=== PATIENT | female | born 1940 | race Caucasian/White ===

== ENCOUNTER 2018-11-14 13:10 | Observation (INO) | payer MEDICARE, MEDICAID ==
[2018-11-14 13:18] VITALS: BMI 37.1
--- NOTE | 2018-11-14 13:22 | C.PDOC ---
History Of Present Illness 78 y/o female presents to ED complaining of feeling dizzy, having unsteady gait and right hand numbness that started 8:30 this morning. Patient denies any headache, nausea, vomiting, or other complaints. Time Seen by Provider: 11/14/18 13:18 Chief Complaint (Nursing): Weakness/Neurological Deficit History Per: Patient History/Exam Limitations: no limitations Onset/Duration Of Symptoms: Hrs Current Symptoms Are (Timing): Still Present Past Medical History Reviewed: Historical Data, Nursing Documentation, Vital Signs Family History: States: No Known Family Hx Review Of Systems Except As Marked, All Systems Reviewed And Found Negative. Constitutional: Negative for: Fever, Chills Gastrointestinal: Negative for: Nausea, Vomiting Musculoskeletal: Positive for: Other (right hand numbness) Neurological: Positive for: Dizziness. Negative for: Headache Physical Exam - Physical Exam Appears: Non-toxic, No Acute Distress Skin: Warm, Dry Head: Normacephalic Eye(s): bilateral: Normal Inspection Oral Mucosa: Moist Neck: Supple Cardiovascular: Rhythm Regular, No Murmur Respiratory: Normal Breath Sounds, No Rales, No Rhonchi, No Wheezing Extremity: Bilateral: Atraumatic, Normal ROM Neurological/Psych: Oriented x3, Normal Speech, Other (mild ataxia) ED Course And Treatment - Laboratory Results Result Diagrams: 11/14/18 13:26 11/14/18 13:26 ECG: Interpreted By Me, Viewed By Pr ECG Rhythm: Sinus Rhythm, R BBB ECG Interpretation: Normal Interpretation Of ECG: No prior for comparison. Rate From EC O2 Sat by Pulse Oximetry: 98 (RA) Pulse Ox Interpretation: Normal - Other Rad CXR X-Ray: Read By Radiologist Interpretation: FINDINGS: LUNGS: The lungs are well inflated and clear. PLEURA: No pleural effusions or pneumothorax. CARDIOVASCULAR: The heart is n ormal in size. No aortic atherosclerotic calcifications present. OSSEOUS STRUCTURES: Within normal limits for the patient's age. VISUALIZED UPPER ABDOMEN: Normal. OTHER FINDINGS: None. IMPRESSION: No active pulmonary disease. - CT Scan/US Head CT Other Rad Studies (CT/US): Read By Radiologist, Radiology Report Reviewed CT/US Interpretation: FINDINGS: HEMORRHAGE: No intracranial hemorrhage. BRAIN: No mass effect or edema. Minimal atrophy. Minimal periventricular white matter lucency consistent with chronic microvascular ischemic change. No evidence of acute infarct. VENTRICLES: Unremarkable. No hydrocephalus. CALVARIUM: Unremarkable. PARANASAL SINUSES: Unremarkable as visualized. No significant inflammatory changes. MASTOID AIR CELLS: Unremarkable as visualized. No inflammatory changes. OTHER FINDINGS: None. IMPRESSION: No evidence of acute infarct. Mild age related atrophy and chronic white matter ischemic change. Findings were discussed by telephone with Dr. Parra at 1:39 p.m. on 11/14/2018. NIHSS Stroke Scale 2 - Date/Time Evaluation Performed Time Performed: 21:50 - How Severe is the Stroke Level of Consciousness: 0=Alert LOC to Questions: 0=Both comments correct LOC to commands: 0=Obeys both correctly Best Gaze: 0=Normal Visual: 0=No visual loss Facial: 0=Normal Motor Arm - Left: 0=No drift Motor Arm - Right: 0=No drift Motor Leg - Left: 0=No drift Motor Leg - Right: 0=No drift Limb Ataxia: 2=Present both Sensory: 1=Mild to moderate loss Best Language: 0=No aphasia Dysarthia: 0=Normal articulation Extinction & Inattention (Neglect): 0=Normal, no object Score: 3 rTPA Inclusion/Exclusion - Refusal of Treatment Patient Refused Treatment: No - Inclusion Criteria for Altepase All of the below criteria for inclusion were reviewed: Yes Patient is 18 years or Older: Yes The Clinical Diagnosis of Ischemic Stroke That is Causing a Potentially Disabling Neurological Deficit: Yes Time of Onset is Well Established to be Less Than 270 Minute Before Treatment Would Begin: Yes Risk/Benefit Discussed With Patient/Family Member Present: Yes Medical Decision Making Medical Decision Making: abbie duarte [facility] seen by dr jackson not tpa cnadiate. Plan: --Head CT --EKG --Labs --Chest XR --UA --IV fluids 1L --Aspirin 325 mg PO symptoms resolved in er. will obs. dr posadas accepts. asa given low nih outside window. Disposition - Disposition Disposition: HOSPITALIZED Disposition Time: 21:00 Condition: STABLE - Clinical Impression Clinical Impression: Dizziness - Scribe Statement The provider has reviewed the documentation as recorded by the Segundo Elena Provider Attestation: All medical record entries made by the Segundo were at my direction and personally dictated by me. I have reviewed the chart and agree that the record accurately reflects my personal performance of the history, physical exam, medical decision making, and the department course for this patient. I have also personally directed, reviewed, and agree with the discharge instructions and disposition.
[2018-11-14] MEDS ORDERED: Iodixanol 320 MG/ML 100 ML BOTTLE IV ONE ×2 (13:27→19:20)
[2018-11-14 13:34] LABS: BASO % 0.7 % (0.0-2.0); EOS # 0.1 K/uL (0.0-0.7); EOS % 1.4 % (0.0-4.0); HEMOGLOBIN 14.2 g/dL (11.0-16.0); LYMPH # 1.5 K/uL (1.0-4.3); LYMPH % 33.3 % (20.0-40.0); MEAN CELL VOLUME 87.9 fL (81.0-99.0); MEAN CORPUSCULAR HEMOGLOBIN 29.5 pg (27.0-31.0); MEAN CORPUSCULAR HGB CONC 33.5 g/dL (33.0-37.0); MEAN PLATELET VOLUME 8.3 fL (7.2-11.7); MONO # 0.5 K/uL (0.0-0.8); MONO % 12.3 % (0.0-10.0); NEUT # 2.3 K/uL (1.8-7.0); NEUT % 52.3 % (50.0-75.0); NRBC % 0.1 % (0.0-2.0); RBC 4.82 Mil/uL (3.80-5.20); WHITE BLOOD COUNT 4.4 K/uL (4.8-10.8)
[2018-11-14 13:43] LABS: INR 1.1; PARTIAL THROMBOPLASTIN TIME 33.1 SECONDS (21-34); PROTHROMBIN TIME 11.9 SECONDS (9.7-12.2)
--- NOTE | 2018-11-14 13:44 | CT ---
Date of service: 11/14/2018 PROCEDURE: CT HEAD WITHOUT CONTRAST. HISTORY: Code Stroke COMPARISON: None available. TECHNIQUE: Axial computed tomography images were obtained through the head/brain without intravenous contrast. Radiation dose: Total exam DLP = 1223.94 mGy-cm. This CT exam was performed using one or more of the following dose reduction techniques: Automated exposure control, adjustment of the mA and/or kV according to patient size, and/or use of iterative reconstruction technique. FINDINGS: HEMORRHAGE: No intracranial hemorrhage. BRAIN: No mass effect or edema. Minimal atrophy. Minimal periventricular white matter lucency consistent with chronic microvascular ischemic change. No evidence of acute infarct. VENTRICLES: Unremarkable. No hydrocephalus. CALVARIUM: Unremarkable. PARANASAL SINUSES: Unremarkable as visualized. No significant inflammatory changes. MASTOID AIR CELLS: Unremarkable as visualized. No inflammatory changes. OTHER FINDINGS: None. IMPRESSION: No evidence of acute infarct. Mild age related atrophy and chronic white matter ischemic change. Findings were discussed by telephone with Dr. Parra at 1:39 p.m. on 11/14/2018.
[2018-11-14 13:49] LABS: ALB/GLOB RATIO 1.2 (1.0-2.1); ALBUMIN 4.8 g/dL (3.5-5.0); ALT/SGPT 20 U/L (9-52); AST/SGOT 30 U/L (14-36); BLOOD UREA NITROGEN 18 mg/dL (7-17); CALCIUM 9.7 mg/dl (8.6-10.4); GFR NON-AFRICAN AMERICAN > 60; HDL CHOLESTEROL 63 mg/dL (30-70)
[2018-11-14 14:00] LABS: LDL CHOLESTEROL 101 mg/dL (0-129)
--- NOTE | 2018-11-14 14:43 | RAD ---
Date of service: 11/14/2018 HISTORY: Code Stroke COMPARISON: No prior. FINDINGS: LUNGS: The lungs are well inflated and clear. PLEURA: No pleural effusions or pneumothorax. CARDIOVASCULAR: The heart is normal in size. No aortic atherosclerotic calcifications present. OSSEOUS STRUCTURES: Within normal limits for the patient's age. VISUALIZED UPPER ABDOMEN: Normal. OTHER FINDINGS: None. IMPRESSION: No active pulmonary disease.
[2018-11-14] MEDS ORDERED: Sodium Chloride 0.9% 1,000 ML ONE (15:44)
[2018-11-14] MEDS: Sodium Chloride 0.9% 1,000 ML IV SCH (15:48)
--- NOTE | 2018-11-14 15:57 | CP.PCM.CON ---
History of Present Illness - History of Present Illness History of Present Illness: Neurology consult dictated Patient with dizziness that was sudden in onset, with no dysarthria, aphasia or weakness, who came in as a code stroke. Her NIHSS is 0 now and she states that she has these dizziness spells from time to time. Neuro exam: normal, no dysmetria. CT head: normal. A/p: 78 yr old woman with transient dizziness that is not neurologically related. I do not think this is TIA, however we will admit for observation. Thank you Dr. Zhang Neurology Past Patient History - Past Social History Smoking Status: Never Smoked - CARDIAC Hx Cardiac Disorders: Yes Hx Hypertension: Yes - PSYCHIATRIC Hx Substance Use: No - SURGICAL HISTORY Hx Surgeries: No Meds Allergies/Adverse Reactions: Allergies Allergy/AdvReac Type Severity Reaction Status Date / Time No Known Allergies Allergy Verified 11/14/18 13:16 - Medications Medications: Current Medications Sodium Chloride (Sodium Chloride 0.9%) 1,000 mls @ 100 mls/hr IV .Q10H SAMM Results - Vital Signs Recent Vital Signs: Last Vital Signs Temp 97.4 F L 11/14/18 13:19 Pulse 115 H 11/14/18 13:19 Resp 18 11/14/18 13:19 BP 133/83 11/14/18 13:19 Pulse Ox 98 11/14/18 15:45 - Labs Result Diagrams: 11/14/18 13:26 11/14/18 13:26 Labs: Laboratory Results - last 24 hr 11/14/18 11/14/18 11/14/18 13:26 13:26 13:26 WBC 4.4 L RBC 4.82 Hgb 14.2 Hct 42.3 MCV 87.9 MCH 29.5 MCHC 33.5 RDW 14.0 Plt Count 234 MPV 8.3 Neut % (Auto) 52.3 Lymph % (Auto) 33.3 [place] % (Auto) 12.3 H Eos % (Auto) 1.4 Baso % (Auto) 0.7 Neut # (Auto) 2.3 Lymph # (Auto) 1.5 [place] # (Auto) 0.5 Eos # (Auto) 0.1 Baso # (Auto) 0.0 PT 11.9 INR 1.1 APTT 33.1 Sodium 141 Potassium 4.0 Chloride 98 Carbon Dioxide 29 Anion Gap 19 BUN 18 H Creatinine 0.8 Est GFR ( Amer) > 60 Est GFR (Non-Af Amer) > 60 POC Glucose (mg/dL) Random Glucose 103 D Hemoglobin A1c Calcium 9.7 Total Bilirubin 0.5 AST 30 ALT 20 Alkaline Phosphatase 79 Troponin I < 0.0120 Total Protein 8.7 H Albumin 4.8 Globulin 4.0 H Albumin/Globulin Ratio 1.2 Triglycerides 151 H Cholesterol 217 H LDL Cholesterol Direct 101 HDL Cholesterol 63 Blood Type Antibody Screen 11/14/18 11/14/18 11/14/18 13:26 13:26 13:51 WBC RBC Hgb Hct MCV MCH MCHC RDW Plt Count MPV Neut % (Auto) Lymph % (Auto) [place] % (Auto) Eos % (Auto) Baso % (Auto) Neut # (Auto) Lymph # (Auto) [place] # (Auto) Eos # (Auto) Baso # (Auto) PT INR APTT Sodium Potassium Chloride Carbon Dioxide Anion Gap BUN Creatinine Est GFR ( Amer) Est GFR (Non-Af Amer) POC Glucose (mg/dL) 101 Random Glucose Hemoglobin A1c 5.8 Calcium Total Bilirubin AST ALT Alkaline Phosphatase Troponin I Total Protein Albumin Globulin Albumin/Globulin Ratio Triglycerides Cholesterol LDL Cholesterol Direct HDL Cholesterol Blood Type B POSITIVE Antibody Screen Negative
[2018-11-14 17:26] VITALS: RESP 20
[2018-11-14 23:27] LABS: CK-MB 1.66 ng/mL (0.0-3.38)
[2018-11-15] MEDS: Sodium Chloride 0.9% 1,000 ML IV SCH ×3 (02:53→19:30)
[2018-11-15 05:40] LABS: BASO % 0.8 % (0.0-2.0); EOS # 0.1 K/uL (0.0-0.7); EOS % 2.3 % (0.0-4.0); HEMOGLOBIN 13.6 g/dL (11.0-16.0); LYMPH # 1.6 K/uL (1.0-4.3); LYMPH % 39.8 % (20.0-40.0); MEAN CELL VOLUME 87.2 fL (81.0-99.0); MEAN CORPUSCULAR HEMOGLOBIN 29.1 pg (27.0-31.0); MEAN CORPUSCULAR HGB CONC 33.4 g/dL (33.0-37.0); MEAN PLATELET VOLUME 8.4 fL (7.2-11.7); MONO # 0.4 K/uL (0.0-0.8); MONO % 9.2 % (0.0-10.0); NEUT # 1.9 K/uL (1.8-7.0); NEUT % 47.9 % (50.0-75.0); RBC 4.69 Mil/uL (3.80-5.20); RED CELL DISTRIBUTION WIDTH 13.5 % (11.5-14.5)
[2018-11-15 05:57] LABS: BLOOD UREA NITROGEN 16 mg/dL (7-17); CALCIUM 9.3 mg/dl (8.6-10.4); GFR NON-AFRICAN AMERICAN > 60
[2018-11-15 06:09] LABS: CK-MB 1.36 ng/mL (0.0-3.38)
[2018-11-15] MEDS: Enoxaparin 40 mg Syringe SC SCH (09:04)
[2018-11-15 09:32] LABS: SQUAMOUS EPITHIAL < 1 /hpf (0-5); URINE BILIRUBIN NEGATIVE (NEGATIVE); URINE BLOOD NEGATIVE (NEGATIVE); URINE CLARITY Clear (Clear); URINE COLOR Yellow (YELLOW); URINE GLUCOSE (UA) NORMAL (Normal); URINE LEUKOCYTE ESTERASE NEG Leu/uL (Negative); URINE PROTEIN NEGATIVE (NEGATIVE); URINE UROBILINOGEN NORMAL mg/dL (0.2-1.0)
--- NOTE | 2018-11-15 16:26 | CT ---
Date of service: 11/14/2018 PROCEDURE: CT Angiography of the neck and brain HISTORY: Dizziness COMPARISON: Comparison made with CT scan 11/14/2018 at 1332 hr TECHNIQUE: Contiguous axial images of the neck and brain were obtained from the level of the vertex of the skull to the superior mediastinum in the arteriographic phase of enhancement. Coronal and sagittal reformats or also generated. IV contrast dose: 100 cc Visipaque 320 Radiation dose: Total exam DLP = 627.91 mGy-cm. This CT exam was performed using one or more of the following dose reduction techniques: Automated exposure control, adjustment of the mA and/or kV according to patient size, and/or use of iterative reconstruction technique. FINDINGS: The aortic arch is widely patent despite some very minor calcified atherosclerotic plaque changes. There is a common origin of the right subclavian and left carotid artery. Both common carotid arteries are patent with no evidence of occlusion or dissection or significant stenosis. Note that the mid margins of the common carotid arteries exhibit short retropharyngeal course. There are partially calcified atherosclerotic plaque changes seen at both carotid bifurcations extending into the proximal margins of both internal carotid artery right greater than left. Changes on the right result in mild approximately 30-35 % diameter greater than left with no significant left-sided stenosis of. The distal internal carotid arteries including the petrous cavernous and supraclinoid segments are patent. Some very minor calcified atherosclerotic plaque both carotid siphons. The major branches of the [id number] are patent.. There is mild asymmetry of the A1 segments left-sided which is larger in caliber/more dominant than the right-side. There appears to be a origin of the right posterior cerebral artery with asymmetry of the P1 segments with the right-side smaller in caliber/hypoplastic compared to the left side. The distal branches of the anterior middle and posterior cerebral arteries appear relatively patent. No evidence of large aneurysm nor vascular malformation. Multilevel degenerative spondylosis of the cervical spine. IMPRESSION: There is mild calcified atherosclerotic plaque both carotid bifurcations extending into the proximal internal carotid arteries right greater than left with approximately 30-35 % diameter narrowing. No evidence of occlusion or dissection. The intra cerebral circulation is also patent as above.
[2018-11-16] MEDS: Sodium Chloride 0.9% 1,000 ML IV SCH (02:59)
--- NOTE | 2018-11-16 06:05 | CP.PCM.HP ---
Present on Admission - Present on Admission Any Indicators Present on Admission: No Past Patient History - Past Social History Smoking Status: Never Smoked - CARDIAC Hx Cardiac Disorders: Yes Hx Hypertension: Yes - PSYCHIATRIC Hx Substance Use: No - SURGICAL HISTORY Hx Surgeries: No Meds Allergies/Adverse Reactions: Allergies Allergy/AdvReac Type Severity Reaction Status Date / Time No Known Allergies Allergy Verified 11/14/18 13:16 Results - Vital Signs Recent Vital Signs: Last Vital Signs Temp 97.8 F 11/16/18 04:00 Pulse 81 11/16/18 04:00 Resp 20 11/16/18 04:00 BP 108/68 11/16/18 04:00 Pulse Ox 96 11/16/18 04:00 - Labs Result Diagrams: 11/15/18 05:35 11/15/18 05:35 Labs: Laboratory Results - last 24 hr 11/15/18 11/15/18 11/15/18 05:35 05:35 09:21 CK-MB (Mass) 1.36 Troponin I < 0.0120 TSH 3rd Generation 2.73 Urine Color Yellow Urine Clarity Clear Urine pH 5.0 Ur Specific [place] 1.021 Urine Protein Negative Urine Glucose (UA) Normal Urine Ketones Negative Urine Blood Negative Urine Nitrate Negative Urine Bilirubin Negative Urine Urobilinogen Normal Ur Leukocyte Esterase Neg Urine WBC (Auto) < 1 Ur Squamous Epith Cells < 1
[2018-11-16 08:36] LABS: BASO % 0.9 % (0.0-2.0); EOS # 0.1 K/uL (0.0-0.7); EOS % 2.5 % (0.0-4.0); HEMOGLOBIN 12.5 g/dL (11.0-16.0); LYMPH # 1.7 K/uL (1.0-4.3); LYMPH % 45.1 % (20.0-40.0); MEAN CELL VOLUME 88.1 fL (81.0-99.0); MEAN CORPUSCULAR HEMOGLOBIN 29.9 pg (27.0-31.0); MEAN CORPUSCULAR HGB CONC 33.9 g/dL (33.0-37.0); MEAN PLATELET VOLUME 8.7 fL (7.2-11.7); MONO # 0.4 K/uL (0.0-0.8); MONO % 10.1 % (0.0-10.0); NEUT # 1.6 K/uL (1.8-7.0); NEUT % 41.4 % (50.0-75.0); NRBC % 0.1 % (0.0-2.0); RBC 4.18 Mil/uL (3.80-5.20); RED CELL DISTRIBUTION WIDTH 13.7 % (11.5-14.5); WHITE BLOOD COUNT 3.9 K/uL (4.8-10.8)
[2018-11-16 08:48] LABS: ALB/GLOB RATIO 1.3 (1.0-2.1); ALBUMIN 3.8 g/dL (3.5-5.0); ALT/SGPT 18 U/L (9-52); AST/SGOT 18 U/L (14-36); BLOOD UREA NITROGEN 14 mg/dL (7-17); CALCIUM 8.4 mg/dl (8.6-10.4); GFR NON-AFRICAN AMERICAN > 60
[2018-11-16 09:24] VITALS: TEMP 98.1
[2018-11-16] MEDS: Enoxaparin 40 mg Syringe SC SCH (09:45)
[2018-11-16 09:46] VITALS: BP 129/74; PULSE 98; O2SAT 96
--- NOTE | 2018-11-16 13:29 | CP.PCM.DIS ---
Provider - Provider Date of Admission: 11/14/18 14:34 Attending physician: Will Garcia MD Consults: 11/14/18 13:21 Stroke Team Consult Stat Comment: Consulting Provider: Neurohospitalist Consulting Physician: NEUROHOSP Neurohospitalist for Consult: [place] Mckenzie Neurohospitalist for Consult: Jesus Zhang Reason for Consult: code stroke Time Spent in preparation of Discharge (in minutes): 30 Hospital Course - Lab Results Lab Results: Most Recent Lab Values WBC 3.9 K/uL (4.8-10.8) L 11/16/18 08:17 RBC 4.18 Mil/uL (3.80-5.20) 11/16/18 08:17 Hgb 12.5 g/dL (11.0-16.0) 11/16/18 08:17 Hct 36.8 % (34.0-47.0) 11/16/18 08:17 MCV 88.1 fL (81.0-99.0) 11/16/18 08:17 MCH 29.9 pg (27.0-31.0) 11/16/18 08:17 MCHC 33.9 g/dL (33.0-37.0) 11/16/18 08:17 RDW 13.7 % (11.5-14.5) 11/16/18 08:17 Plt Count 199 K/uL (130-400) 11/16/18 08:17 MPV 8.7 fL (7.2-11.7) 11/16/18 08:17 Neut % (Auto) 41.4 % (50.0-75.0) L 11/16/18 08:17 Lymph % (Auto) 45.1 % (20.0-40.0) H 11/16/18 08:17 [place] % (Auto) 10.1 % (0.0-10.0) H 11/16/18 08:17 Eos % (Auto) 2.5 % (0.0-4.0) 11/16/18 08:17 Baso % (Auto) 0.9 % (0.0-2.0) 11/16/18 08:17 Neut # (Auto) 1.6 K/uL (1.8-7.0) L 11/16/18 08:17 Lymph # (Auto) 1.7 K/uL (1.0-4.3) 11/16/18 08:17 [place] # (Auto) 0.4 K/uL (0.0-0.8) 11/16/18 08:17 Eos # (Auto) 0.1 K/uL (0.0-0.7) 11/16/18 08:17 Baso # (Auto) 0.0 K/uL (0.0-0.2) 11/16/18 08:17 PT 11.9 SECONDS (9.7-12.2) 11/14/18 13:26 INR 1.1 11/14/18 13:26 APTT 33.1 SECONDS (21-34) 11/14/18 13:26 Sodium 141 mmol/L (132-148) 11/16/18 08:17 Potassium 4.3 mmol/L (3.6-5.2) 11/16/18 08:17 Chloride 104 mmol/L (98-107) 11/16/18 08:17 Carbon Dioxide 28 mmol/L (22-30) 11/16/18 08:17 Anion Gap 13 (10-20) 11/16/18 08:17 BUN 14 mg/dL (7-17) 11/16/18 08:17 Creatinine 0.8 mg/dL (0.7-1.2) 11/16/18 08:17 Est GFR ( Amer) > 60 11/16/18 08:17 Est GFR (Non-Af Amer) > 60 11/16/18 08:17 POC Glucose (mg/dL) 101 mg/dL (65-110) 11/14/18 13:51 Random Glucose 90 mg/dL (65-105) 11/16/18 08:17 Hemoglobin A1c 5.8 % (4.2-6.5) 11/14/18 13:26 Calcium 8.4 mg/dl (8.6-10.4) L 11/16/18 08:17 Total Bilirubin 0.4 mg/dL (0.2-1.3) 11/16/18 08:17 AST 18 U/L (14-36) 11/16/18 08:17 ALT 18 U/L (9-52) 11/16/18 08:17 Alkaline Phosphatase 62 U/L (38-126) 11/16/18 08:17 Total Creatine Kinase 107 U/L (30-135) 11/15/18 05:35 CK-MB (Mass) 1.36 ng/mL (0.0-3.38) 11/15/18 05:35 Troponin I < 0.0120 ng/mL (0.00-0.120) 11/15/18 05:35 Total Protein 6.8 g/dL (6.3-8.3) 11/16/18 08:17 Albumin 3.8 g/dL (3.5-5.0) 11/16/18 08:17 Globulin 3.0 gm/dL (2.2-3.9) 11/16/18 08:17 Albumin/Globulin Ratio 1.3 (1.0-2.1) 11/16/18 08:17 Triglycerides 151 mg/dL (0-149) H 11/14/18 13:26 Cholesterol 217 mg/dL (0-199) H 11/14/18 13:26 LDL Cholesterol Direct 101 mg/dL (0-129) 11/14/18 13:26 HDL Cholesterol 63 mg/dL (30-70) 11/14/18 13:26 TSH 3rd Generation 2.73 mIU/L (0.46-4.68) 11/15/18 05:35 Urine Color Yellow (YELLOW) 11/15/18 09:21 Urine Clarity Clear (Clear) 11/15/18 09:21 Urine pH 5.0 (5.0-8.0) 11/15/18 09:21 Ur Specific [place] 1.021 (1.003-1.030) 11/15/18 09:21 Urine Protein Negative mg/dL (NEGATIVE) 11/15/18 09:21 Urine Glucose (UA) Normal mg/dL (Normal) 11/15/18 09:21 Urine Ketones Negative mg/dL (NEGATIVE) 11/15/18 09:21 Urine Blood Negative (NEGATIVE) 11/15/18 09:21 Urine Nitrate Negative (NEGATIVE) 11/15/18 09:21 Urine Bilirubin Negative (NEGATIVE) 11/15/18 09:21 Urine Urobilinogen Normal mg/dL (0.2-1.0) 11/15/18 09:21 Ur Leukocyte Esterase Neg [place]/uL (Negative) 11/15/18 09:21 Urine WBC (Auto) < 1 /hpf (0-5) 11/15/18 09:21 Ur Squamous Epith Cells < 1 /hpf (0-5) 11/15/18 09:21 Blood Type B POSITIVE 11/14/18 13:26 Antibody Screen Negative 11/14/18 13:26 Discharge Plan - Discharge Medications Prescriptions: Aspirin [Adult Low Dose Aspirin EC] 81 mg PO DAILY #30 tablet. Atorvastatin [Lipitor] 20 mg PO DAILY 30 Days #30 tab - Follow Up Plan Condition: STABLE Disposition: HOME/ ROUTINE Instructions: Dizziness, Nonvertigo, (DC), Paresthesias (DC), Hand Numbness, Aspirin, Atorvastatin Additional Instructions: Patient discharged home as per Dr Garcia. Prescriptions were sent to [facility]. Please follow up with Dr Garcia within one week. If symptoms worsen or return please come back to the ED. Referrals: Will Garcia MD [Staff Provider] -
--- NOTE | 2018-11-17 01:36 | HP ---
CHIEF COMPLAINT: Left forehead pain. HISTORY OF PRESENT ILLNESS: This is an 78-year-old female with a history of hypertension who is compliant with diet, medication, and followup with no other significant past medical history. On the day of admission, she developed left forehead pain, which was dull, non-radiating, not associated with diaphoresis or dizziness. No nausea or vomiting. No diarrhea. No fever. No chills. No rigors. The patient denied any history of neck pain or nuchal rigidity. The patient denies any cough, sore throat, or runny nose. She denies any runny nose, sneezing, itchy eyes, or itchy nose. There is no history of trauma, fall, or loss of consciousness. There is no history of seizure-like activity. The patient denies any tingling, numbness, or paresthesia. PAST MEDICAL HISTORY: Positive for hypertension. SOCIAL HISTORY: Nonsmoker and non-EtOH user. CURRENT MEDICATION: Metoprolol. FAMILY HISTORY: Negative for stroke. PHYSICAL EXAMINATION: GENERAL: An elderly female in no acute distress. VITAL SIGNS: Blood pressure 116/70, pulse 74, respiratory rate 20, and temperature 98. SKIN: Senile turgor. No bruises. No purpura. HEENT: Atraumatic and normocephalic. Negative pallor. Negative jaundice. Extraocular movements are intact. NECK: Supple. No JVD. CHEST WALL: Bilateral symmetrical expansion. LUNGS: Clear. No rales. No rhonchi. CARDIOVASCULAR SYSTEM: S1 and S2. Regular. No heave. No thrill. ABDOMEN: Soft and nontender. Bowel sounds are positive. RECTAL: No masses. No bleed. EXTREMITIES: No clubbing, cyanosis, or edema. CENTRAL NERVOUS SYSTEM: Awake, alert, and oriented x3. Cranial nerves II through XII are normal. Power 5/5 x4. Plantars are downgoing. ASSESSMENT: 1. Headache and dizziness. 2. History of hypertension. PLAN: Admit. Detailed orders are written. Seen and examined. Will Garcia MD
--- NOTE | 2018-11-17 03:54 | DS ---
DISCHARGE DIAGNOSES: 1. Headache, nonspecific. 2. Cerebral arteriosclerosis. HISTORY OF PRESENT ILLNESS: This is an elderly female with history of hypertension, came in because of headache. No dizziness. No chest pain. No nausea or vomiting. No diaphoresis or dizziness. The patient was admitted to the floor. She was started on , seizure precaution. Neurology consult was done. CT head and CT angio of the head and neck was negative. She has sclerosis with high LDL, and the patient is being discharged on aspirin and statin, and she maybe followed up as outpatient. CONDITION UPON DISCHARGE: Stable. Will Garcia MD
== END 2018-11-16 15:15 | disposition home or self-care (01) ==
LOC: C.ER 13:10 → C.9E 14:34 → C.6T 16:09
PROVIDERS: ADMIT Internal Medicine; ATTEND Internal Medicine
DX: I67.2 Cerebral atherosclerosis (principal); R51 Headache; I10 Essential (primary) hypertension; R29.700 NIHSS score 0
CPT/HCPCS: 36415; 70450; 70496; 70498; 71045; 80048; 80053; 80061; 81001; 82948; 83036; 84443; 84484; 85025; 85610; 85730; 86850; 86900; 99285; G0378; J1650; J7030; Q9967